=== PATIENT | male | born 1970 | race Caucasian/White ===

== ENCOUNTER 2021-03-30 22:45 | Observation (INO) | payer BC ==
[~2021-03-30] VITALS: Ht 177.8 cm; Wt 84.9 kg
[2021-03-30 23:12] LABS: BASO # 0.1 (0.0-0.2); BASO % 0.5 % (0.0-2.0); EOS # 0.2 (0.0-0.7); EOS % 2.1 % (0-4.0); GRAN # 7.5 (1.4-6.5); GRAN % 74.1 % (42.2-75.2); HEMATOCRIT 49.2 % (42.0-52.0); HEMOGLOBIN 16.2 g/dl (13.5-18.0); LYMPH # 1.8 (1.2-3.4); LYMPH % 18.1 % (20.0-51.0); MEAN CELL VOLUME 87 fl (80.0-100.0); MEAN CORPUSCULAR HEMOGLOBIN 29 pg (27.0-31.0); MEAN CORPUSCULAR HGB CONC 33 g/dl (33.0-37.0); MEAN PLATELET VOLUME 10.3 fl (7.4-10.4); MONO # 0.5 (0.1-0.6); MONO % 4.9 % (1.7-9.3); PLATELET COUNT 202 K/mm3 (130-400); RED BLOOD COUNT 5.67 M/mm3 (4.20-5.60); REDCELL DISTRIBUTION WIDTH-CV 14.8 % (11.5-14.5)
[2021-03-30 23:20] LABS: ALBUMIN 3.5 gm/dL (3.5-5.0); BILIRUBIN,TOTAL 0.5 mg/dL (0.0-1.0); CALCIUM 8.7 mg/dL (8.4-10.2); CREATININE, serum 1.25 (0.66-1.25); POTASSIUM 3.5 mmol/L (3.4-5.0); TOTAL PROTEIN 6.6 gm/dL (6.4-8.2)
[2021-03-30 23:39] LABS: TROPONIN-I 0.051 ng/mL (0.000-0.035)
[2021-03-31] VITALS (8 sets, daily range): BP systolic 116–142; BP diastolic 78–97; PULSE 79–99; TEMP 97.6–98.3
[2021-03-31] MEDS ORDERED: LASIX 40MG TABL40 MG PO (03:32)
[2021-03-31] MEDS ORDERED: ASPIRIN 81M81 MG/TA2 PO (03:32)
[2021-03-31] MEDS ORDERED: PRINIVIL10 MG PO (03:32)
--- NOTE | 2021-03-31 04:27 | NUR ---
Johnathan is a new admit this morning came in with SOB and chest pain. When he came up he denies pain he is on room air and sat very good between 95 to 99%. His Troponin went up from 0.051 to 0.060 PA Lynne notified. He ate snacks this morning without any issues. Cardio consult will be notify this morning. Continue to monitor.
--- NOTE | 2021-03-31 06:25 | NUR ---
Brent Jefferson a [employer] Operator was call this morning at 0625 for consult.
[2021-03-31 07:31] LABS: CALCIUM 8.5 mg/dL (8.4-10.2); CHOLESTEROL RISK RATIO 5.5; CREATININE, serum 1.19 (0.66-1.25); POTASSIUM 3.3 mmol/L (3.4-5.0)
[2021-03-31 07:41] LABS: BASO # 0.1 (0.0-0.2); BASO % 0.6 % (0.0-2.0); EOS # 0.3 (0.0-0.7); EOS % 2.8 % (0-4.0); GRAN # 5.8 (1.4-6.5); GRAN % 61.1 % (42.2-75.2); HEMOGLOBIN 17.5 g/dl (13.5-18.0); LYMPH # 2.8 (1.2-3.4); LYMPH % 28.8 % (20.0-51.0); MEAN CELL VOLUME 88 fl (80.0-100.0); MEAN CORPUSCULAR HEMOGLOBIN 29 pg (27.0-31.0); MEAN CORPUSCULAR HGB CONC 33 g/dl (33.0-37.0); MEAN PLATELET VOLUME 11.3 fl (7.4-10.4); MONO # 0.6 (0.1-0.6); MONO % 6.4 % (1.7-9.3); PLATELET COUNT 202 K/mm3 (130-400); RED BLOOD COUNT 6.01 M/mm3 (4.20-5.60); REDCELL DISTRIBUTION WIDTH-CV 15.6 % (11.5-14.5)
--- NOTE | 2021-03-31 12:45 | NUR ---
stopped by but nothing needed at this time.
--- NOTE | 2021-03-31 14:12 | NUR ---
Freya met with the Pt who stated his preference to return home once medically stable. Home is in [place], [place]. The pt lives alone and is independent on all ADLs and uses no DME. The pt next of kin is Mary Alice Friend (ph# [phone] who is a friend. The pt gets his medications from [facility] and Pt could not remeber who is PCP because he retired. The pt does not have a [facility] and is not interested in one at this time. Freya to await further recommendations and follow up as needed. Discharge plan: Home
--- NOTE | 2021-03-31 17:00 | NUR ---
Patient refused heparin.
--- NOTE | 2021-03-31 18:00 | NUR ---
Patient refused K+ replacement.
--- NOTE | 2021-03-31 18:00 | NUR ---
Patient has had an eventful day. Scheduled medications and shift assessment preformed this am. Patient was calm and agreeable to treatment. As the day progressed patient began to have noticable changes to his mood and alertness. Patient was falling asleep mid conversation, slurring his words, and was unable to keep his train of thought. VSS at this time. Dr. Castaneda notified, and a blood ETOH and drug abuse screen were ordered. Patient noted to have unidentified pills in his pocket along with a cologne bottle filled with an unknown substance. Staff asked patient if they would be able to search his belongings. Patient became irate and exited the room and made his way down to ED exit. Patient intercepted. Patient was calmed down and AMA forms were signed. Patient became very weak and decided that he would rather return to his room. Patient began to C/O SOA and Chest pain/tightness rated a 6/10. VSS. 2L of O2 via nasal cannula placed on patient, nitro tab given. Upon reassessment, patient stated that his pain had been relieved and he was no longer feeling SOA. Patient placed on fall precautions. Dr. Castaneda, safety supervisor, and securitiy notified. House and security were able to secure patient's pill bottle. Patient very upset that items were being searched. Patient was able to be calmed down and again became agreeable to treatment. At 1830 patient called stating that he was ready to go and wanted his IV taken out. IV DC'd, catheter intact no signs of phlebitis. AMA paperwork signed. Patient is currently waiting on a ride. Report given to TIMA Pena.
--- NOTE | 2021-03-31 22:41 | NUR ---
Johnathan is been nice to me since I came tonight. He requested if he can take a shower. He stayed in shower room for almost 30min. I checked him often while he was in there. He refused for [employer] APPRENTICE to get check his VS. When he's done in shower I was able to get his VS and put telemetry back. He was on sinus tachy at 110's.He agreed to take his Potassium and the rest of his night pills too. Will continue to monitor.
[2021-04-01] VITALS: BP 123/85; PULSE 108; TEMP 98
[2021-04-01 04:49] VITALS: BP 132/84; PULSE 80; TEMP 98.7
[2021-04-01 05:07] LABS: TRICYCLIC ANTIDEPRESS URINE NEGATIVE
[2021-04-01 08:03] LABS: CALCIUM 8.3 mg/dL (8.4-10.2); CREATININE, serum 1.18 (0.66-1.25); POTASSIUM 3.5 mmol/L (3.4-5.0)
[2021-04-01 08:18] LABS: TROPONIN-I 0.06 ng/mL (0.000-0.035)
--- NOTE | 2021-04-01 08:41 | NUR ---
0700 PT RECEIVED LYING IN BED RESTING. NO S/S OF DISTRESS NOTED. WILL CONTINUE TO MONITOR. 0745 AIDE WENT INTO PT'S ROOM TO TAKE HIS V/S. PT TOLD THE AIDE TO GET OUT AND THAT HE IS LEAVING. WENT INTO PT'S ROOM AND NOTICED PT GETTING DRESSED. INTRODUCED MYSELF TO PT HIS NURSE AND ASKED WHY IS HE LEAVING. PT STATES WITH ANGER, "I'M LEAVING, LET ME GET MY STUFF, GET OUT." I EXIT THE ROOM PLACED CALL TO DEXTER BUSTAMANTE AND SHE STATES SHE WILL LET THE MD KNOW. PT NOTICED WALKING BACK TO HIS ROOM, BELONGINGS STILL AT THE BEDSIDE. CALL PLACED TO SECURITY TO MAKE THEM AWARE THAT PT IS ANGRY, THREATENING TO LEAVE THE HOSPITAL, DESCRIPTION OF PT GIVEN TO PROTOTYPE ENGINEER MANAGER. DIRECTOR SAFETY AND MYSELF WENT BACK TO PT'S ROOM AND NOTICED THAT HE IS GONE AND HIS BELONGINGS IS STILL AT THE BEDSIDE. PT'S OWN MEDICATION IS BROUGHT UP FROM PHARMACY. AMA FORM IS ON THE CHART AND SIGNED BY PT FROM PREVIOUS THREAT TO LEAVE THE HOSPITAL.
--- NOTE | 2021-04-01 09:09 | NUR ---
0840 PT IN E.D. WITH SECURITY AND DECIDES THAT HE WANTS TO LEAVE. PRANAVE AND MYSELF TOOK PT BELONGINGS DOWN TO E.D. PT CAN NOT BE FOUND. SECURITY AT THE DESK AND STATES THE PT IS STILL HERE, BELONGINGS GIVEN TO SECURITY.
--- NOTE | 2021-04-02 06:56 | NUR ---
PATIENT DISCHARGED BEFORE STRESS TEST COULD BE PREFORMED.
== END 2021-04-01 08:45 | disposition left against medical advice (07) ==
LOC: COL.ER 22:45 → MEDICAL 03-31 01:15
PROVIDERS: Internal Medicine; Personal Emergency Response Attendant; Student in an Organized Health Care Education/Training Program; ADMIT Student in an Organized Health Care Education/Training Program
DX: I13.10 Hypertensive heart and chronic kidney disease without heart failure, with stage 1 through stage 4 chronic kidney disease, or unspecified chronic kidney disease (principal); I50.23 Acute on chronic systolic (congestive) heart failure; I25.2 Old myocardial infarction; N18.9 Chronic kidney disease, unspecified; E78.5 Hyperlipidemia, unspecified; F19.20 Other psychoactive substance dependence, uncomplicated; Z91.19 Patient's noncompliance with other medical treatment and regimen; Z79.82 Long term (current) use of aspirin; Z79.899 Other long term (current) drug therapy
CPT/HCPCS: 99222-AI; 99238; G0378; J1644; J1940